=== PATIENT | female | born 1960 | race Caucasian/White ===

== ENCOUNTER 2018-07-05 17:58 | Emergency (ER) | payer OTHER ==
[2018-07-05 18:03] VITALS: BP 121/72; PULSE 64; TEMP 97.6; BMI 36.0
--- NOTE | 2018-07-05 19:12 | PDOC ---
History of Present Illness - General Chief Complaint: Pain, Acute Stated Complaint: ABD PAIN/BODYACHES Time Seen by Provider: 07/05/18 19:12 - History of Present Illness Initial Comments: 07/05/18 19:36 Ms. Moreland is a 58 yo female w/ no pmh who presents for evaluation of 2 day history of multiple episodes of diarrhea w/ 2 episodes of vomiting. Both were non bloody, vomitus was also no bilius. Patient also reports she has felt slightly weak today and has had intermittent subjective fever. Has not been eating much over this time period. Of note, patient reports she got the flu shot on Sunday and attributes her symptoms to this. Has no other complaints at this time. The patient denies chest pain, shortness of breath, headache and dizziness. Denies dysuria, frequency, urgency and hematuria. Past History - Past Medical History Allergies/Adverse Reactions: Allergies Allergy/AdvReac Type Severity Reaction Status Date / Time Penicillins Allergy Verified 07/05/18 18:03 COPD: No - Suicide/Smoking/Psychosocial Hx Smoking History: Never smoked Hx Alcohol Use: No Drug/Substance Use Hx: No Review of Systems - Review of Systems Comments:: 07/05/18 19:37 GENERAL/CONSTITUTIONAL: +Subjective fevers with some minimal weakness as described. HEAD, EYES, EARS, NOSE AND THROAT: No change in vision. No ear pain or discharge. No sore throat. CARDIOVASCULAR: No chest pain or shortness of breath RESPIRATORY: No cough, wheezing, or hemoptysis. GASTROINTESTINAL: +N/V/D as described. GENITOURINARY: No dysuria, frequency, or change in urination. MUSCULOSKELETAL: No joint or muscle swelling or pain. No neck or back pain. SKIN: No rash NEUROLOGIC: No headache, vertigo, loss of consciousness, or change in strength/ sensation. ENDOCRINE: No increased thirst. No abnormal weight change HEMATOLOGIC/LYMPHATIC: No anemia, easy bleeding, or history of blood clots. ALLERGIC/IMMUNOLOGIC: No hives or skin allergy. *Physical Exam - Vital Signs Last Vital Signs Temp Pulse Resp BP Pulse Ox 97.6 F 64 16 121/72 99 07/05/18 18:00 07/05/18 18:00 07/05/18 18:00 07/05/18 18:00 07/05/18 18:00 - Physical Exam Comments: 07/05/18 19:37 GENERAL: Awake, alert, and fully oriented, in no acute distress HEAD: No signs of trauma, normocephalic, atraumatic EYES: PERRLA, EOMI, sclera anicteric, conjunctiva clear ENT: Auricles normal inspection, hearing grossly normal, nares patent, oropharynx clear without exudates. Moist mucosa NECK: Normal ROM, supple, no lymphadenopathy, JVD, or masses LUNGS: No distress, speaks full sentences, clear to auscultation bilaterally HEART: Regular rate and rhythm, normal S1 and S2, no murmurs, rubs or gallops, peripheral pulses normal and equal bilaterally. ABDOMEN: +LUQ TTP. Soft, normoactive bowel sounds. No guarding, no rebound. No masses EXTREMITIES: Normal inspection, Normal range of motion, no edema. No clubbing or cyanosis. NEUROLOGICAL: Cranial nerves II through XII grossly intact. Normal speech, normal gait, no focal sensorimotor deficits SKIN: Warm, Dry, normal turgor, no rashes or lesions noted. ED Treatment Course - LABORATORY CBC & Chemistry Diagram: 07/05/18 19:40 07/05/18 19:40 Medical Decision Making - Medical Decision Making 07/05/18 22:00 Ms. Moreland is a 58 yo female w/ pmh as described who presents for evaluation of symptoms concerning for gastritis vs. viral illness vs. UTI. Patient evaluated with labs as below w/ no concerning findings. Believe patient symptoms 2/2 viral illness. Patient reports improvement of symptoms following zofran and fluids. Patient tolerated PO w/out difficulty. No concern for acute process at this time. Discharging to home. Laboratory Results - last 24 hr 07/05/18 07/05/18 07/05/18 19:40 19:40 21:40 WBC 4.5 RBC 4.67 Hgb 14.5 Hct 43.1 MCV 92.2 MCH 30.9 MCHC 33.6 RDW 13.6 Plt Count 236 MPV 8.1 Absolute Neuts (auto) 2.2 Neutrophils % 49.3 Lymphocytes % 32.8 Monocytes % 12.6 H Eosinophils % 4.9 H Basophils % 0.4 Nucleated RBC % 0 Sodium 141 Potassium 3.5 Chloride 109 H Carbon Dioxide 24 Anion Gap 8 BUN 11 Creatinine 0.6 Creat Clearance w eGFR 101.97 Random Glucose 89 Calcium 8.3 L Total Bilirubin 0.3 AST 58 H ALT 58 Alkaline Phosphatase 129 H Total Protein 7.2 Albumin 3.7 Urine Color Yellow Urine Appearance Clear Urine pH 5.5 Ur Specific [place] 1.020 Urine Protein Negative Urine Glucose (UA) Negative Urine Ketones Negative Urine Blood Negative Urine Nitrite Negative Urine Bilirubin Negative Urine Urobilinogen 1.0 Ur Leukocyte Esterase Negative *DC/Admit/Observation/Transfer Diagnosis at time of Disposition: Vomiting and diarrhea - Discharge Dispostion Disposition: HOME - Referrals Referrals: Angelina Pagan MD [Primary Care Provider] - - Patient Instructions Printed Discharge Instructions: DI for Diarrhea and Traveler's Diarrhea -- Adult, DI for Vomiting -- Adult Additional Instructions: You were evaluated today in the ER for your symptoms. We performed labs with no concerning findings. Your symptoms improved after hydration. Please follow-up with primary care provider early next week for further evaluation. Return to ER if any difficulty tolerating food, pain, or other concerning symptoms. Print Language: THAI - Post Discharge Activity
[2018-07-05] MEDS ORDERED: ONDANSETRON 4 MG/2 ML VIAL IVPUSH ONE (19:22)
[2018-07-05] MEDS ORDERED: SODIUM CHLORIDE 1,000 ML IV STA (19:22)
--- NOTE | 2018-07-05 19:38 | PDOC ---
Attending Attestation - HPI HPI: 07/05/18 19:47 The patient is a 58 year old female with no past medical history presents to the emergency department with vomiting, diarrhea and weakness. The patient reports she got the flu shot earlier this week and since then shes been having symptoms of nausea, 2 episodes of NBNB vomiting, diarrhea and mild weakness. The patient reports she has episodes of room spinning dizziness. Denies chest pain, shortness of breath, palpitations. Denies fever, chills, cough, headache, abdominal pain, or urinary symptoms. Allergies: PEnicillins PCP: Angelina Pagan MD - Physicial Exam PE: 07/05/18 21:50 GENERAL: The patient is in no acute distress. ENT: Ears normal, nares patent, oropharynx clear without exudates. Moist mucous membranes. NECK: Normal range of motion, supple, no nuchal rigidity LUNGS: Breath sounds equal, clear to auscultation bilaterally. No wheezes, and no crackles. HEART: Regular rate and rhythm, normal S1 and S2 without murmur, rub or gallop. ABDOMEN: Soft, nontender, normoactive bowel sounds. No guarding, no rebound. No masses palpable. EXTREMITIES: chronic midline back pain. Normal range of motion, no edema. NEUROLOGICAL: Cranial nerves II through XII grossly intact. Normal speech. No focal neurological deficits. SKIN: Warm, Dry, normal turgor, no rashes or lesions noted. 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 She feels vastly improved with hydration in the ER and her labs are normal. UA normal too. <Fatemeh Garrido - Last Filed: 07/06/18 05:22>
[2018-07-05 19:49] LABS: BASO % 0.4 % (0-2.0); EOS % 4.9 % (0-4.5); HEMATOCRIT 43.1 % (32.4-45.2); HEMOGLOBIN 14.5 GM/dL (10.7-15.3); LYMPH % 32.8 % (8-40); MCH 30.9 pg (25.7-33.7); MCHC 33.6 g/dl (32.0-36.0); MEAN CELL VOLUME 92.2 fl (80-96); MEAN PLT VOLUME 8.1 fl (7.5-11.1); MONO % 12.6 % (3.8-10.2); NEUT % 49.3 % (42.8-82.8); PLATELET COUNT 236 K/MM3 (134-434); RBC 4.67 M/mm3 (3.60-5.2); RDW 13.6 % (11.6-15.6); WHITE BLOOD COUNT 4.5 K/mm3 (4.0-10.0)
[2018-07-05 20:19] LABS: ALBUMIN 3.7 g/dl (3.4-5.0); ALK PHOS 129 U/L (45-117); ANION GAP 8 MMOL/L (8-16); BILIRUBIN,TOTAL 0.3 mg/dL (0.2-1); BLOOD UREA NITROGEN 11 mg/dL (7-18); CALCIUM 8.3 mg/dL (8.5-10.1); CHLORIDE 109 mmol/L (98-107); CO2 24 mmol/L (21-32); CREATININE 0.6 mg/dL (0.55-1.3); GLUCOSE,RANDOM 89 mg/dL (74-106); POTASSIUM 3.5 mmol/L (3.5-5.1); SGOT/AST 58 U/L (15-37); SGPT/ALT 58 U/L (13-61); SODIUM 141 mmol/L (136-145); TOT PROT 7.2 g/dl (6.4-8.2)
[2018-07-05] MEDS ORDERED: ONDANSETRON 4 MG/2 ML VIAL ONE (20:21)
[2018-07-05 21:56] LABS: PH,URINE 5.5 (5.0-8.0); URINE APPEARANCE CLEAR; URINE BILIRUBIN NEGATIVE (NEGATIVE); URINE COLOR YELLOW; URINE GLUCOSE (UA) NEGATIVE (NEGATIVE); URINE KETONE NEGATIVE (NEGATIVE); URINE LEUK ESTERASE NEGATIVE (NEGATIVE); URINE NITRITE NEGATIVE (NEGATIVE); URINE PROTEIN NEGATIVE (NEGATIVE)
== END 2018-07-05 22:22 | disposition home or self-care (01) ==
LOC: JER 17:58
PROC: 3E033GC Introduction of Other Therapeutic Substance into Peripheral Vein, Percutaneous Approach (ICD-10-PCS; principal; 2018-07-05)
DX: R11.2 Nausea with vomiting, unspecified (principal); R19.7 Diarrhea, unspecified
CPT/HCPCS: 36415; 80053; 81003; 85025; 87086; 87186; 96374; 99282-25; J7030

== ENCOUNTER 2019-02-25 18:26 | Emergency (ER) | payer OTHER ==
[2019-02-25 18:34] VITALS: BP 146/86; PULSE 74; TEMP 98; BMI 32.7
--- NOTE | 2019-02-25 18:35 | PDOC ---
Rapid Medical Evaluation Time Seen by Provider: 02/25/19 18:32 Medical Evaluation: Allergies Allergy/AdvReac Type Severity Reaction Status Date / Time Penicillins Allergy Verified 07/05/18 18:03 02/25/19 18:32 I have performed a brief in-person evaluation of this patient. The patient presents with a chief complaint of: hand pain, burning Pertinent physical exam findings:stable and in NAD, non-focal I have ordered the following: hand xray The patient will proceed to the ED for further evaluation.
--- NOTE | 2019-02-25 19:23 | PDOC ---
History of Present Illness - General Chief Complaint: Pain Stated Complaint: HAND PAIN Time Seen by Provider: 02/25/19 18:32 - History of Present Illness Initial Comments: 02/25/19 19:22 4-year-old female without comorbidities presents for evaluation of sensation changes in bilateral fingertips x1 week without systemic symptoms Past History - Past Medical History Allergies/Adverse Reactions: Allergies Allergy/AdvReac Type Severity Reaction Status Date / Time Penicillins Allergy Verified 02/25/19 18:35 Home Medications: Ambulatory Orders NK [No Known Home Medication] 02/25/19 COPD: No - Psycho Social/Smoking Cessation Hx Smoking History: Never smoked Hx Alcohol Use: No Drug/Substance Use Hx: No Review of Systems - Review of Systems Neurological: Yes: See HPI *Physical Exam - Vital Signs Last Vital Signs Temp Pulse Resp BP Pulse Ox 98 F 74 18 146/86 99 02/25/19 18:30 02/25/19 18:30 02/25/19 18:30 02/25/19 18:30 02/25/19 18:30 - Physical Exam Comments: 02/25/19 19:22 Bilateral hand skin color and temperature normal there is no tenderness or gross sensorimotor deficits. There is decreased sensation at the tips of the fingers. She complains of a warm feeling at times. Medical Decision Making - Medical Decision Making 02/25/19 19:22 X-rays are normal with mild arthritic changes in the hand. 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 - Post Discharge Activity
== END 2019-02-25 19:34 | disposition home or self-care (01) ==
LOC: JERFT 18:26
DX: M79.2 Neuralgia and neuritis, unspecified (principal); Z88.0 Allergy status to penicillin
CPT/HCPCS: 73130-TC-RT-FY; 99282-25

== ENCOUNTER 2019-05-17 09:22 | Emergency (ER) | payer OTHER ==
[2019-05-17 09:33] VITALS: BP 119/68; PULSE 72; TEMP 98.8; BMI 27.4
[2019-05-17] MEDS ORDERED: IBUPROFEN 600 MG TABLET (FP) PO ONE ×2 (09:49→09:51)
[2019-05-17] MEDS ORDERED: CLINDAMYCIN HCL 150 MG CAPSULE (FP) PO ONE (09:49)
[2019-05-17] MEDS ORDERED: CLINDAMYCIN HCL 150 MG CAPSULE (FP) ONE (09:51)
--- NOTE | 2019-05-17 09:56 | PDOC ---
History of Present Illness - General Chief Complaint: Wound Stated Complaint: MOUTH PAIN Time Seen by Provider: 05/17/19 09:32 History Source: Patient Exam Limitations: No Limitations - History of Present Illness Initial Comments: 05/17/19 09:50 Patient is a 59-year-old female with no past medical history who presents to the ED with complaint of gingival swelling and pain to the upper left quadrant since yesterday. As per her family member, the patient ate a crunchy piece of toast and began to have pain. She noticed swelling yesterday which worsened today. Of note: 1 year ago the patient's crown fell off and she never went to see the dentist after that. She has not had any issues up until yesterday. She denies any fevers or chills. She has not taken anything for her pain. Past History - Past Medical History Allergies/Adverse Reactions: Allergies Allergy/AdvReac Type Severity Reaction Status Date / Time Penicillins Allergy Verified 05/17/19 09:27 Home Medications: Ambulatory Orders Clindamycin [Cleocin -] 300 mg PO Q6HPO #28 capsule 05/17/19 COPD: No - Psycho Social/Smoking Cessation Hx Smoking History: Never smoked Hx Alcohol Use: No Drug/Substance Use Hx: No Review of Systems - Review of Systems Comments:: 05/17/19 09:52 - Review of Systems Able to Perform ROS?: Yes Constitutional: No: Fever, Chills, Loss of Appetite, Night Sweats, Weakness HEENTM: No: Eye Pain, Vision changes, Ear Pain, Throat Pain, Throat Swelling, Mouth Pain, Difficulty Swallowing; + left upper gingival swelling Respiratory: No: Cough, Shortness of Breath, Wheezing, Sputum Production Cardiac (ROS): No: Chest Pain, Chest Tightness, Palpitations, Irregular Heart Beat, Edema ABD/GI: No: Nausea, Vomiting, Abdominal Pain, Diarrhea Musculoskeletal: No: Muscle Pain, Back Pain, Joint Pain, Muscle Weakness, Neck Pain Integumentary: No: Lesions, Rash Neurological: No: Headache, Numbness, Tingling, Weakness, Speech Difficulties *Physical Exam - Vital Signs Last Vital Signs Temp Pulse Resp BP Pulse Ox 98.8 F 72 18 119/68 99 05/17/19 09:28 05/17/19 09:28 05/17/19 09:28 05/17/19 09:28 05/17/19 09:28 - Physical Exam 05/17/19 09:53 - Physical Exam General Appearance: Nourished, Appropriately Dressed, No Distress HEENT: EOMI, Normal Voice, No Muffled/Hoarse voice, No Tonsillar Exudate, No Tonsillar Erythema, No Nasal Congestion, No Rhinorrhea, Hearing Grossly Normal, Upper left quadrant gingiva with swelling appreciated. There appears to be diffuse gingivitis. After lightly touching the buccal gingiva around tooth numbers 9, 10 and 11, the gingiva began to bleed immediately. There is no obvious abscess. There is an aphthous ulcer on the gingival surface of tooth # 10 gingiva. There is significant tenderness to palpation. Neck: Supple, No Lymphadenopathy (R), No Lymphadenopathy (L), No Rigidity, No Decreased range of motion Respiratory/Chest: Lungs Clear, Normal Breath Sounds. No Respiratory Distress, No Accessory Muscle Use Cardiovascular: Regular Rhythm, Regular Rate, S1, S2 Musculoskeletal: Normal Inspection. No Decreased Range of Motion Extremity: Normal Capillary Refill, Normal Inspection Integumentary: Normal Color, Dry. 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 Plan: -We will treat the patient for gingivitis and possible underlying abscess with clindamycin since she is allergic to penicillin -300 mg of clindamycin given in the ED, first dose -600 mg of Motrin given in the ED for pain control -Patient has been made aware that she must follow-up with a dentist within the next few days for definitive treatment -She can rinse with salt water to help with infection and pain. -She understands and agrees with this treatment and plan and the patient stable for discharge. Discharge - Discharge Information Problems reviewed: Yes Clinical Impression/Diagnosis: Gingivitis, Gingival abscess Condition: Stable Disposition: HOME - Additional Discharge Information Prescriptions: Clindamycin [Cleocin -] 300 mg PO Q6HPO #28 capsule - Follow up/Referral Referrals: Ekta Stallworth MD [Primary Care Provider] - - Patient Discharge Instructions Patient Printed Discharge Instructions: Tooth Abscess, DI for Gingivitis Additional Instructions: Eat soft foods for the next few days. Take the antibiotics as prescribed and complete the entire course. Take Tylenol or ibuprofen for pain. Gargle with salt water 3 times daily to help with infection and pain. You must see a dentist within the next 2 days for definitive treatment. Print Language: ARABIC - Post Discharge Activity
== END 2019-05-17 10:08 | disposition home or self-care (01) ==
LOC: JER 09:22 → JERFT 09:22
DX: K05.10 Chronic gingivitis, plaque induced (principal); K05.219 Aggressive periodontitis, localized, unspecified severity
CPT/HCPCS: 99281-25

== ENCOUNTER 2019-10-17 09:57 | Inpatient (IN) | payer OTHER ==
--- NOTE | 2019-10-17 10:03 | PDOC ---
Rapid Medical Evaluation Chief Complaint: Lightheaded Time Seen by Provider: 10/17/19 09:59 Medical Evaluation: Allergies Allergy/AdvReac Type Severity Reaction Status Date / Time Penicillins Allergy Verified 10/17/19 09:59 10/17/19 10:00 CC: sudden dizziness this am when attempted to use the bathroom, felt as if the room was spinning and then laid down, tried again later but s/s returned, No visual changes, marble coper, sob, headache, or fever. Denies recent injury, sx, travel, or ear pain Exam: vss, eomi, in wheelchair b/c dizziness worse with standing/movement Plan: ekg, labs, head ct, meclizine Discharge Disposition - Diagnosis Dizziness - Referrals - Patient Instructions - Post Discharge Activity
[2019-10-17] MEDS ORDERED: MECLIZINE HCL 25 MG TABLET (FP) PO ONE ×2 (10:04→13:10)
--- NOTE | 2019-10-17 10:16 | TELE ---
HPI - General Reason For Visit: DIZZINESS Time Seen by Provider: 10/17/19 09:59 Past History - Medical History Allergies/Adverse Reactions: Allergies Allergy/AdvReac Type Severity Reaction Status Date / Time Penicillins Allergy Verified 10/17/19 09:59 Home Medications: Ambulatory Orders Sertraline HCl [Zoloft] 25 mg PO DAILY 10/17/19 COPD: No - Immunization History Immunization Up to Date: No - Psycho-Social/Smoking History Smoking History: Never smoked Have you smoked in the past 12 months: No - Substance Abuse Hx (Audit-C & DAST Scrn) How often the patient has a drink containing alcohol: Never Score: In Men: 4 or > Positive; In Women: 3 or > Positive: 0 Screen Result (Pos requires Nsg. Audit-10AR): Negative In the last yr the pt used illegal drug/Rx for NonMed reason: No Score: Yes response is considered Positive: 0 Screen Result (Positive result requires Nsg. DAST-10): Negative *Physical Exam - Vital Signs Last Vital Signs Temp Pulse Resp BP Pulse Ox 97.7 F 74 18 130/91 99 10/17/19 09:59 10/17/19 09:59 10/17/19 09:59 10/17/19 09:59 10/17/19 09:59 Discharge Diagnosis at time of Disposition: Dizziness - Referrals - Patient Instructions
--- NOTE | 2019-10-17 10:19 | PDOC ---
History of Present Illness - General Chief Complaint: Lightheaded Stated Complaint: DIZZINESS Time Seen by Provider: 10/17/19 09:59 History Source: Patient Exam Limitations: No Limitations - History of Present Illness Initial Comments: 10/17/19 10:18 59yF w PMHx vertigo presenting w 1d dizziness. [place] room spinning when turning to side in bed at 2am this morning and persistent since 9am when she was getting ready for the day. Denies headache, visual changes, CP, SOB, n/v, cough, diarrhea. Had previous vertigo episode in 2001 after eating too much chocolate, doesn't remember how she was treated other than being seen in the hospital. Past History - Medical History Allergies/Adverse Reactions: Allergies Allergy/AdvReac Type Severity Reaction Status Date / Time Penicillins Allergy Verified 10/17/19 09:59 Home Medications: Ambulatory Orders Sertraline HCl [Zoloft] 25 mg PO DAILY 10/17/19 COPD: No - Immunization History Immunization Up to Date: No - Psycho-Social/Smoking History Smoking History: Never smoked Have you smoked in the past 12 months: No - Substance Abuse Hx (Audit-C & DAST Scrn) How often the patient has a drink containing alcohol: Never Score: In Men: 4 or > Positive; In Women: 3 or > Positive: 0 Screen Result (Pos requires Nsg. Audit-10AR): Negative In the last yr the pt used illegal drug/Rx for NonMed reason: No Score: Yes response is considered Positive: 0 Screen Result (Positive result requires Nsg. DAST-10): Negative Review of Systems - Review of Systems Constitutional: No: Chills, Fever HEENTM: No: Eye Pain, Nose Congestion Respiratory: No: Cough, Shortness of Breath Cardiac (ROS): No: Chest Pain, Palpitations, Syncope ABD/GI: No: Abdominal Distended, Constipated, Diarrhea, Nausea, Vomiting : No: Burning, Flank Pain Musculoskeletal: No: Back Pain, Joint Pain Integumentary: No: Bruising, Flushing Neurological: Yes: Dizziness. No: Headache, Seizure Psychiatric: No: Anxiety, Depression Endocrine: No: Intolerance to Cold, Intolerance to Heat Hematologic/Lymphatic: No: Anemia, Blood Clots *Physical Exam - Vital Signs Last Vital Signs Temp Pulse Resp BP Pulse Ox 97.7 F 74 18 130/91 99 10/17/19 09:59 10/17/19 09:59 10/17/19 09:59 10/17/19 09:59 10/17/19 09:59 - Physical Exam General Appearance: Yes: Nourished, Appropriately Dressed, Mild Distress HEENT: positive: EOMI (horizontal nystagmus), JIMMY, Normal Voice, Hearing Grossly Normal. negative: Scleral Icterus (R), Scleral Icterus (L), Nasal Congestion Respiratory/Chest: positive: Lungs Clear, Normal Breath Sounds. negative: Chest Tender, Respiratory Distress, Crackles, Rales, Rhonchi, Stridor, Wheezing Cardiovascular: positive: Regular Rhythm, Regular Rate, S1, S2. negative: Edema, Murmur Gastrointestinal/Abdominal: positive: Normal Bowel Sounds, Flat, Soft. negative: Tender, Organomegaly Integumentary: positive: Normal Color, Warm Neurologic: positive: heel cover splitter II-XII NML intact, Fully Oriented, Alert, Normal Response, Motor Strength 5/5, Responsive, Finger to Nose (normal finger-nose, alternating hands), Other (horizontal nystagmus w alison hallpike). negative: Facial Droop, Numbness, Sensory Deficit, Confused, Disoriented ED Treatment Course - LABORATORY CBC & Chemistry Diagram: 10/17/19 10:31 10/17/19 10:31 Medical Decision Making - Medical Decision Making 10/17/19 11:01 EKG - sinus edilberto, HR 59, QTc 419, no ST changes CXR - clear lung gonzalez head CT - no acute pathology --- 59yF w PMHx vertigo presenting w 1d dizziness (room spinning) Likely peripheral vertigo (positional) Low concern for central vertigo (normal cerebellar neuro testing) vs CVA (no focal neuro deficits, neg CT). Negative HINTS exam Given 75 meclizine, 1 ativan, 1L NS, still unstable when standing up Admit m/s for vertigo Discharge - Discharge Information Problems reviewed: Yes Clinical Impression/Diagnosis: Vertigo Condition: Stable - Follow up/Referral Referrals: Ekta Stallworth MD [Primary Care Provider] - - Patient Discharge Instructions - Post Discharge Activity
[2019-10-17] MEDS ORDERED: MECLIZINE HCL 25 MG TABLET (FP) ONE ×3 (10:31→13:18)
[2019-10-17] MEDS ORDERED: SODIUM CHLORIDE 0.9% 500 ML INFUS.BAG IV ONE (10:44)
[2019-10-17 10:49] LABS: BASO % 0.5 % (0-2.0); EOS % 2.4 % (0-4.5); HEMATOCRIT 40.4 % (32.4-45.2); HEMOGLOBIN 13.5 GM/dL (10.7-15.3); LYMPH % 41.9 % (8-40); MCH 30.9 pg (25.7-33.7); MCHC 33.3 g/dl (32.0-36.0); MEAN CELL VOLUME 92.7 fl (80-96); MEAN PLT VOLUME 7.9 fl (7.5-11.1); NEUT % 49.2 % (42.8-82.8); PLATELET COUNT 299 K/MM3 (134-434); RBC 4.36 M/mm3 (3.60-5.2); RDW 13.4 % (11.6-15.6); WHITE BLOOD COUNT 5.6 K/mm3 (4.0-10.0)
[2019-10-17 11:28] LABS: ALBUMIN 3.9 g/dl (3.4-5.0); ALK PHOS 112 U/L (45-117); ANION GAP 6 MMOL/L (8-16); BILIRUBIN,TOTAL 0.7 mg/dL (0.2-1); CHLORIDE 107 mmol/L (98-107); CO2 28 mmol/L (21-32); CREATININE 0.6 mg/dL (0.55-1.3); GLUCOSE,RANDOM 113 mg/dL (74-106); POTASSIUM 4.5 mmol/L (3.5-5.1); SGOT/AST 21 U/L (15-37); SGPT/ALT 26 U/L (13-61); SODIUM 141 mmol/L (136-145); TOT PROT 7.2 g/dl (6.4-8.2)
--- NOTE | 2019-10-17 11:56 | PDOC ---
Documentation entered by Ele Mayfield SCRIBE, acting as scribe for Brennon Jung MD. Brennon Jung MD: This documentation has been prepared by the Tran lu Brenda, SCRIBE, under my direction and personally reviewed by me in its entirety. I confirm that the documentation accurately reflects all work, treatment, procedures, and medical decision making performed by me. Attending Attestation - Resident Resident Name: Irvin Yo - ED Attending Attestation I have performed the following: I have examined & evaluated the patient, The case was reviewed & discussed with the resident, I agree w/resident's findings & plan, Exceptions are as noted - HPI HPI: 10/17/19 11:50 59-year-old female presenting with vertigo. Patient had an episode of vertigo approximately 2 AM, 1 back to sleep and again at 9 AM when she tried to get up. Patient denies any associated headache, neck pain, nausea, vomiting, diplopia, dysarthria, focal numbness, tingling, weakness. She denies any recent trauma or injuries. She denies any chest pain, shortness of breath, palpitations, diarrhea, melena, blood per rectum. Patient states that she feels room spinning dizziness that is worse when she is laying down or moving her head very quickly. She has had this in the remote past. - Physicial Exam PE: 10/17/19 11:53 GENERAL: The patient is awake, alert, and fully oriented, Nontoxic - in no acute distress. HEAD: Normocephalic, atraumatic. EYES: extraocular movements intact, sclera anicteric, conjunctiva clear. Extinguishing horizontal nystagmus ENT: Normal voice, Moist mucous membranes. NECK: Normal range of motion, supple LUNGS: Breath sounds equal, clear to auscultation bilaterally. No wheezes, no rhonchi, no rales. HEART: Regular rate and rhythm, normal S1 and S2 without murmur, rub or gallop. ABDOMEN: Soft, nontender, No guarding, no rebound. No CVA tenderness EXTREMITIES: Normal range of motion, no edema. PSYCH: Normal mood, normal affect. SKIN: Warm, Dry, normal turgor, NEURO: Mental status: The patient is oriented x3. Cranial nerves: Cranial nerves II through XII are intact Motor: The upper extremities are 5 over 5 in all muscle groups. The lower extrem ities are 5 over 5 in all muscle groups. Negative pronator drift Sensation: Sensation is intact to light touch throughout. romberg negative Cerebellar: Llzbju-fcrhpq-odin is normal in both upper extremities. Jxrq-lwmc-kric is normal in both lower extremities. rapid alternating movements are normal. - Medical Decision Making 10/17/19 10:50 59y F hx of vertigo presens with complaint of feeling room spinning dizziness since this morning after waking up around 2am, went bcak to bed and again at 9am. No associated headache, vision changes, dysarthria. 10/17/19 11:53 Likely peripheral vertigo, normal neuro and cerebellar exam findings. Will obtain CT of the head due to her age Will give meclizine, fluids Screening blood work to evaluate for anemia, metabolic derangements 10/17/19 15:[address] neg for acut epathology pt still feeling very vertiginous, unable to ambulate will admit for further mangement of vertigo Heart Score/ECG Review - ECG Impressions Comment:: 10/17/19 11:54 Twelve-lead EKG was performed and reviewed by me. There is normal sinus rhythm with a normal rate. Rate of 59 The axis is normal. The intervals are normal. There is normal R wave progression There are no ST or T wave abnormalities. Impression: Sinus bradycardia Discharge - Discharge Information Problems reviewed: Yes Clinical Impression/Diagnosis: Vertigo Condition: Improved Disposition: HOME - Follow up/Referral - Patient Discharge Instructions - Post Discharge Activity
--- NOTE | 2019-10-17 13:25 | EKG ---
Test Reason : Blood Pressure : / mmHG Vent. Rate : 059 BPM Atrial Rate : 059 BPM P-R Int : 150 ms QRS Dur : 086 ms QT Int : 424 ms P-R-T Axes : 053 008 026 degrees QTc Int : 419 ms POOR DATA QUALITY, INTERPRETATION MAY BE ADVERSELY AFFECTED SINUS BRADYCARDIA OTHERWISE NORMAL ECG NO PREVIOUS ECGS AVAILABLE Confirmed by LAKEISHA WANG MD ([id number]) on 10/17/2019 1:25:47 PM Referred By: Confirmed By:LAKEISHA WANG MD
[2019-10-17] MEDS ORDERED: LORazepam 2 MG/ML SDV VIAL ONE (14:17)
[2019-10-17] MEDS ORDERED: MECLIZINE HCL 25 MG TABLET (FP) PO PRN (16:22)
--- NOTE | 2019-10-17 16:34 | PN ---
Teaching Attending Note Name of Resident: Rain Cardoso ATTENDING PHYSICIAN STATEMENT I saw and evaluated the patient. I reviewed the resident's note and discussed the case with the resident. I agree with the resident's findings and plan as documented. SUBJECTIVE: 59 year old female with known history of vertigo, who presents to ED complaining of dizziness. Apparently she woke up about 2 am, felt dizzy but slept it off. Woke up again feeling dizzy. She denied headaches, neck aches, nausea, vomiting. She is able to ambulate however felt unsteady on her feet. orse when she is laying down or moving her head very quickly. She has had this in the remote past. 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 No nystagmus. Ambulation is steady. ASSESSMENT AND PLAN: #1 Sudden dizziness - her neurologic exam is essentially normal - ddx; TIA, peripheral vertigo (BPPV) - cont close neurologic monitoring - she responded to meclizine - cardiac monitroing - monitor blood pressure - check orthostatics #2 DVT prophylaxis - Lovenox DW Dr Bryan and
--- NOTE | 2019-10-17 16:58 | HP ---
CHIEF COMPLAINT: dizziness PCP: Angelina Lion HISTORY OF PRESENT ILLNESS: Patient is a 59 year old female with past medical history of anxiety, presented to the ED due to persistent dizziness since this morning. Patient reported she woke up around 2am this morning to go to the bathroom, then suddenly experienced dizziness, described as room spinning around her, worse with sudden head position stages. The symptom persisted that patient became unsteady to walk, and crawled back to bed instead. She reported previous vertigo episode in 2001 after eating too much chocolate, doesn't remember how she was treated other than being seen in the hospital. Patient denies any fevers, chills, headache, nausea, vomiting, chest pain, shortness of breath, abdominal pain, diarrhea, urinary symptoms. No hearing loss, tinnitus or discharge. Denies any recent illness or sick contacts. ER course was notable for: (1)Head CT - no acute pathology (2) (3) Recent Travel: denies PAST MEDICAL HISTORY: PAST SURGICAL HISTORY: x2 cholecystectomy Social History: Smoking:denies Alcohol:denies Drugs: denies Allergies Penicillins Allergy (Verified 10/17/19 09:59) HOME MEDICATIONS: Home Medications Medication Instructions Recorded Sertraline HCl [Zoloft] 25 mg PO DAILY 10/17/19 REVIEW OF SYSTEMS CONSTITUTIONAL: Absent: fever, chills, diaphoresis, generalized weakness, malaise, loss of appetite, weight change HEENT: Absent: rhinorrhea, nasal congestion, throat pain, throat swelling, difficulty swallowing, mouth swelling, ear pain, eye pain, visual changes CARDIOVASCULAR: Absent: chest pain, syncope, palpitations, irregular heart rate, lightheadedness, peripheral edema RESPIRATORY: Absent: cough, shortness of breath, dyspnea with exertion, orthopnea, wheezing, stridor, hemoptysis GASTROINTESTINAL: Absent: abdominal pain, abdominal distension, nausea, vomiting, diarrhea, constipation, melena, hematochezia GENITOURINARY: Absent: dysuria, frequency, urgency, hesitancy, hematuria, flank pain, genital pain MUSCULOSKELETAL: Absent: myalgia, arthralgia, joint swelling, back pain, neck pain SKIN: Absent: rash, itching, pallor HEMATOLOGIC/IMMUNOLOGIC: Absent: easy bleeding, easy bruising, lymphadenopathy, frequent infections ENDOCRINE: Absent: unexplained weight gain, unexplained weight loss, heat intolerance, cold intolerance NEUROLOGIC: dizziness Absent: headache, focal weakness or paresthesias, unsteady gait, seizure, mental status changes, bladder or bowel incontinence PSYCHIATRIC: Absent: anxiety, depression, suicidal or homicidal ideation, hallucinations. PHYSICAL EXAMINATION Vital Signs - 24 hr 10/17/19 10/17/19 10/17/19 09:59 13:00 16:09 Temperature 97.7 F Pulse Rate 74 Respiratory 18 12 Rate Blood Pressure 130/91 Blood Pressure 147/77 [Left Arm] O2 Sat by Pulse 99 98 Oximetry (%) GENERAL: Awake, alert, and fully oriented, in no acute distress. HEAD: Normal with no signs of trauma. EYES:PERRLA, EOMI, sclera anicteric, conjunctiva clear. EARS, NOSE, THROAT: Moist mucous membranes. NECK: Normal range of motion, supple . LUNGS: Breath sounds equal, clear to auscultation bilaterally. HEART: Regular rate and rhythm, normal S1 and S2 ABDOMEN: Soft, nontender, not distended, normoactive bowel sounds MUSCULOSKELETAL: Normal range of motion at all joints. LOWER EXTREMITIES: 2+ pulses, warm, well-perfused. No peripheral edema. NEUROLOGICAL: Cranial nerves II-XII intact. Normal speech. motor 5/5, sensation intact. No dysmetria, no dysdiadochokinesia. +Romberg's PSYCHIATRIC: Cooperative. Good eye contact. Appropriate mood and affect. SKIN: Warm, dry, normal turgor Laboratory Results - last 24 hr 10/17/19 10/17/19 10:31 10:31 WBC 5.6 RBC 4.36 Hgb 13.5 Hct 40.4 MCV 92.7 MCH 30.9 MCHC 33.3 RDW 13.4 Plt Count 299 MPV 7.9 Absolute Neuts (auto) 2.8 Neutrophils % 49.2 D Lymphocytes % 41.9 H D Monocytes % 6.0 Eosinophils % 2.4 D Basophils % 0.5 Nucleated RBC % 0 Sodium 141 Potassium 4.5 Chloride 107 Carbon Dioxide 28 Anion Gap 6 L BUN 11.0 Creatinine 0.6 Est GFR (CKD-EPI)AfAm 114.02 Est GFR (CKD-EPI)NonAf 98.38 Random Glucose 113 H Calcium 9.0 Total Bilirubin 0.7 AST 21 ALT 26 Alkaline Phosphatase 112 Creatine Kinase 60 Troponin I < 0.02 Total Protein 7.2 Albumin 3.9 ASSESSMENT/PLAN: Patient is a 59 year old female with past medical history of anxiety, presented to the ED due to persistent dizziness since this morning. #Dizziness, likely BPPV -Head CT no acute pathology -EKG sinus edilberto, HR 59, QTc 419, no ST changes -orthostatics -tele monitoring -will continue meclizine prn for dizziness -physical therapy -fall risk precaution #FEN -Not on any standing fluids -Electrolytes wnl, routine bmp monitoring -Sodium restricted diet #Prophylaxis -Lovenox 40mg sq daily #Disposition -tele obs -likely for discharge tomorrow if dizziness improves Visit type - Emergency Visit Emergency Visit: Yes ED Registration Date: 10/17/19 Care time: The patient presented to the Emergency Department on the above date and was hospitalized for further evaluation of their emergent condition. - New Patient This patient is new to me today: Yes Date on this admission: 10/17/19 - Critical Care Critical Care patient: No ATTENDING PHYSICIAN STATEMENT I saw and evaluated the patient. I reviewed the resident's note and discussed the case with the resident. I agree with the resident's findings and plan as documented. SUBJECTIVE: OBJECTIVE: ASSESSMENT AND PLAN:
[2019-10-17 18:00] VITALS: BMI 29.9
[2019-10-18 06:57] LABS: BASO % 0.7 % (0-2.0); HEMATOCRIT 40.2 % (32.4-45.2); HEMOGLOBIN 13.5 GM/dL (10.7-15.3); MCH 31.4 pg (25.7-33.7); MCHC 33.5 g/dl (32.0-36.0); MEAN CELL VOLUME 93.5 fl (80-96); MEAN PLT VOLUME 8.2 fl (7.5-11.1); MONO % 7.7 % (3.8-10.2); NEUT % 51.6 % (42.8-82.8); PLATELET COUNT 256 K/MM3 (134-434); RBC 4.29 M/mm3 (3.60-5.2); RDW 13.1 % (11.6-15.6); WHITE BLOOD COUNT 5.6 K/mm3 (4.0-10.0)
[2019-10-18 07:16] LABS: CHOLESTEROL 187 mg/dL (50-200); HDL CHOLESTEROL 64 mg/dL (40-60); LDL CHOLESTEROL (ONLY SJRH) 103 mg/dL (5-100); TRIGLYCERIDES 78 mg/dL (0-150)
[2019-10-18 07:21] LABS: ALBUMIN 3.7 g/dl (3.4-5.0); BILIRUBIN,TOTAL 0.5 mg/dL (0.2-1); BLOOD UREA NITROGEN 16.2 mg/dL (7-18); CALCIUM 8.9 mg/dL (8.5-10.1); CREATININE 0.7 mg/dL (0.55-1.3); MAGNESIUM 2.1 mg/dL (1.8-2.4); PHOSPHOROUS 3.6 mg/dL (2.5-4.9); POTASSIUM 4.2 mmol/L (3.5-5.1); TOT PROT 6.8 g/dl (6.4-8.2)
[2019-10-18] MEDS: ENOXAPARIN NA (PORCINE) 40 MG/0.4 ML DISP.SYRIN SQ SCH (09:41)
[2019-10-18] MEDS: SERTRALINE HCL 25 MG TABLET (FP) PO SCH (09:41)
--- NOTE | 2019-10-18 12:28 | PN ---
Progress Note, Physician Chief Complaint: Patient improved no complaint of vertigo nausea vomiting or any focal weakness History of Present Illness: 59-year-old female history of chronic vertigo and dizziness with anxiety disorders presents with an episode of severe vertigo with unsteadiness admitted for further work-up overnight symptoms improved on meclizine. - Current Medication List Current Medications: Active Medications Enoxaparin Sodium (Lovenox -) 40 mg SQ DAILY [facility] Last Admin: 10/18/19 09:41 Dose: 40 mg Documented by: Meclizine HCl (Antivert -) 25 mg PO TID PRN PRN Reason: VERTIGO Sertraline HCl (Zoloft -) 25 mg PO DAILY [facility] Last Admin: 10/18/19 09:41 Dose: 25 mg Documented by: - Objective Vital Signs: Vital Signs Temperature 98.1 F 10/18/19 10:00 Pulse Rate 60 10/18/19 10:00 Respiratory Rate 15 10/18/19 10:00 Blood Pressure 134/52 L 10/18/19 10:00 O2 Sat by Pulse Oximetry (%) 98 10/18/19 07:46 General: Elderly woman, comfortable, not in distress HEENT mucous membranes moist, no anemia, no jaundice, PERRLA, no nystagmus Neck: No JVD, supple, no bruit, thyroid palpably normal, normal carotid pulsations. Chest: Nontender, clear to auscultation bilaterally CVS: S1-S2 regular/irregular no murmur/gallop/rub Abdomen: Nondistended, soft, bowel sounds present. Extremities: No edema., No Calf tenderness, pulses present MEDICAL HISTORIAN: AO X3 , no gross motor sensory deficit Labs: CBC, BMP 10/18/19 06:10 10/18/19 06:10 LDL cholesterol 107 - ....Imaging Chest X-ray: Report Reviewed (Normal) Cat Scan: Report Reviewed (Head: No acute changes) EKG: Report Reviewed (No acute ST-T changes) Problem List - Problems (1) Vertigo Assessment/Plan: Present with intractable vertigo, improved after meclizine admitted to rule out TIA we will follow-up neurology work-up ABCD 2 score is low further neuro work- up inpatient/outpatient as per neuro recommendations, continue neurochecks Problems reviewed: Yes Code(s): R42 - DIZZINESS AND GIDDINESS (2) Anxiety disorder Assessment/Plan: Continue sertraline. Problems reviewed: Yes Code(s): F41.9 - ANXIETY DISORDER, UNSPECIFIED
[2019-10-18 15:22] LABS: EPI CELLS 9 /uL (0-25.1); HYALINE CASTS 1 /uL (0-3.1); URINE APPEARANCE CLEAR; URINE BACTERIA 3139 /uL (0-1359); URINE BILIRUBIN NEGATIVE (NEGATIVE); URINE COLOR YELLOW; URINE GLUCOSE (UA) NEGATIVE (NEGATIVE); URINE KETONE NEGATIVE (NEGATIVE); URINE LEUK ESTERASE NEGATIVE (NEGATIVE); URINE NITRITE POSITIVE (NEGATIVE); URINE PROTEIN NEGATIVE (NEGATIVE); URINE RBC 1 /uL (0-23.9); URINE WBC 12 /uL (0-25.8)
[2019-10-18] MEDS ORDERED: ACETAMINOPHEN 325 MG TABLET (FP) PO PRN (18:55)
--- NOTE | 2019-10-19 09:13 | DS ---
Physical Examination Vital Signs: Vital Signs Temperature 97.8 F 10/19/19 06:24 Pulse Rate 67 10/19/19 06:24 Respiratory Rate 13 10/19/19 06:24 Blood Pressure 134/67 10/19/19 06:24 O2 Sat by Pulse Oximetry (%) 99 10/19/19 08:09 General: Elderly female, comfortable, not in distress HEENT mucous membranes moist, no anemia, no jaundice, PERRLA, no nystagmus Neck: No JVD, supple, no bruit, thyroid palpably normal, normal carotid pulsations. Chest: Nontender, clear to auscultation bilaterally/bilateral wheezing/bilateral basal rales. CVS: S1-S2 regular/irregular no murmur/gallop/rub Abdomen: Nondistended, soft, bowel sounds present. 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 , no gross motor sensory deficit Labs: CBC, BMP 10/18/19 06:10 10/18/19 06:10 Chest x-ray: CT head: No acute changes EKG: Normal sinus rhythm no acute ST-T changes or any arrhythmia court recording monitor: 24 hours no arrhythmia Discharge Summary Problems reviewed: Yes Reason For Visit: VERTIGO Current Active Problems Anxiety disorder (Acute) Vertigo (Acute) Plan of Treatment: Follow-up with your neurology and primary care and take meclizine as needed, please consult nearby ED for complaint of worsening dizziness vertigo change in mental status or any focal weakness or neurological sign like headache, dys arthria or diplopia. Condition: Improved - Instructions Diet, Activity, Other Instructions: Your visit You were admitted to the hospital because of dizziness. CAT scan of your head and your blood work are unremarkable. You were evaluated by the neurologist as well and advised to continue taking Meclizine as needed and to follow up at the clinic. Medications Please take the following medications as prescribed: 1. Meclizine 25mg every 8 hours as needed for dizziness. Please continue your other home medications Have a low-salt, low-cholesterol diet. Follow up Please follow up with your primary care doctor within 1-2 weeks. Please follow up with the neurologist (Dr. Reyes) within 1-2 weeks. Additional info Please call 911 or go to the ED if with any worsening fevers, chills, headache ,dizziness, chest pain, shortness of breath, belly pain or any new concerns noted. Referrals: Fredi Reyes MD [Staff Physician] - 2 Weeks Ekta Stallworth MD [Primary Care Provider] - Disposition: HOME - Home Medications Comprehensive Discharge Medication List: Ambulatory Orders Sertraline HCl [Zoloft] 25 mg PO DAILY 10/17/19 Meclizine HCl [Antivert -] 25 mg PO TID PRN #30 tablet 10/19/19
--- NOTE | 2019-10-19 09:35 | CON.NEURO ---
Consult - Alcohol/Substance Use Hx Alcohol Use: No - Smoking History Smoking history: Never smoked Have you smoked in the past 12 months: No Home Medications - Allergies Allergies/Adverse Reactions: Allergies Allergy/AdvReac Type Severity Reaction Status Date / Time Penicillins Allergy Verified 10/17/19 09:59 - Home Medications Home Medications: Ambulatory Orders Sertraline HCl [Zoloft] 25 mg PO DAILY 10/17/19 Meclizine HCl [Antivert -] 25 mg PO TID PRN #30 tablet 10/19/19 Physical Exam-Neuro Vital Signs: Vital Signs Temperature 97.8 F 10/19/19 06:24 Pulse Rate 67 10/19/19 06:24 Respiratory Rate 13 10/19/19 06:24 Blood Pressure 134/67 10/19/19 06:24 O2 Sat by Pulse Oximetry (%) 99 10/19/19 08:09 Labs: CBC, BMP 10/18/19 06:10 10/18/19 06:10 Assessment/Plan cc Episode of vertigo sensation started on october 16 HPI 59 year old emale history of anxiety, came to hospital for persistent dizziness. 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 She describes it as spinning sensation. Patient had ct head and it was unremarkable. Patient was seen on october 17 at [facility] and she was feeling much better. she was being given meclizine . Patient feels she improved 90 percent She denies any headhace, dysphagia , dysarthria, diplopia, no motor or sensoy weakness. PMH as above PAST SURGICAL HISTORY: x2 cholecystectomy Social History: Smoking:denies Alcohol:denies Drugs: denies Allergies Penicillins Allergy (Verified 10/17/19 09:59) HOME MEDICATIONS: Home Medications Medication Instructions Recorded Sertraline HCl [Zoloft] 25 mg PO DAILY 10/17/19 ROS,FH,SH reviewed in chart NEUROLOGICAL EXAMINATION Alert oriented x 3 vss, neck is supple eomi, no nsytagmus was seen, pupil reactive no face asymmetry moving all ext ct head unremarabe Assessment/Plan BPPV, markedly improved adn no other focal neuro symptoms, and signs, unlikley to be stroke PLan no need for mri or stroke work up meclizine prn follow up outpatient. Thanking you so much Fredi Reyes MD
[2019-10-19] MEDS: ENOXAPARIN NA (PORCINE) 40 MG/0.4 ML DISP.SYRIN SQ SCH (10:02)
[2019-10-19] MEDS: SERTRALINE HCL 25 MG TABLET (FP) PO SCH (10:02)
--- NOTE | 2019-10-19 15:29 | PN ---
Progress Note, Physician Chief Complaint: Patient refused meclizine complaint of vertigo when getting up from bed unable to walk History of Present Illness: 59-year-old female history of chronic vertigo and dizziness with anxiety disorders presents with an episode of severe vertigo with unsteadiness admitted for further work-up , initially improved with the meclizine, evaluated by neurology cleared to discharge patient developed recurrence of symptoms unable to get up and walk - Current Medication List Current Medications: Active Medications Acetaminophen (Tylenol -) 650 mg PO Q6H PRN PRN Reason: HEADACHE Enoxaparin Sodium (Lovenox -) 40 mg SQ DAILY [facility] Last Admin: 10/19/19 10:02 Dose: 40 mg Documented by: Meclizine HCl (Antivert -) 25 mg PO TID PRN PRN Reason: VERTIGO Sertraline HCl (Zoloft -) 25 mg PO DAILY [facility] Last Admin: 10/19/19 10:02 Dose: 25 mg Documented by: - Objective Vital Signs: Vital Signs Temperature 97.7 F 10/19/19 10:00 Pulse Rate 70 10/19/19 10:00 Respiratory Rate 18 10/19/19 10:00 Blood Pressure 153/68 10/19/19 10:00 O2 Sat by Pulse Oximetry (%) 99 10/19/19 08:09 General: Elderly woman, comfortable, not in distress HEENT mucous membranes moist, no anemia, no jaundice, PERRLA, no nystagmus Neck: No JVD, supple, no bruit, thyroid palpably normal, normal carotid pulsations. Chest: Nontender, clear to auscultation bilaterally CVS: S1-S2 regular/irregular no murmur/gallop/rub Abdomen: Nondistended, soft, bowel sounds present. 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 Code(s): F41.9 - ANXIETY DISORDER, UNSPECIFIED
[2019-10-19] MEDS: MECLIZINE HCL 25 MG TABLET (FP) PO SCH (21:01)
[2019-10-20] MEDS: MECLIZINE HCL 25 MG TABLET (FP) PO SCH ×2 (05:45→13:24)
[2019-10-20] MEDS: SERTRALINE HCL 25 MG TABLET (FP) PO SCH (09:04)
[2019-10-20] MEDS: ENOXAPARIN NA (PORCINE) 40 MG/0.4 ML DISP.SYRIN SQ SCH (09:04)
--- NOTE | 2019-10-20 10:19 | PN ---
Progress Note (short form) - Note Progress Note: c Episode of vertigo sensation started on october 16 59 year old emale history of anxiety, came to hospital for persistent dizziness. It started when she were going to bathroom gun number of october 16. She describes it as spinning sensation. Patient had ct head and it was unremarkable. Patient was seen on october 17 at [facility] and she was feeling much better. she was being given meclizine . Patient feels she improved 90 percent She denies any headhace, dysphagia , dysarthria, diplopia, no motor or sensoy weakness. Patient could not be discharged yesterday and she is feeling slightly worse . she just woke up NEUROLOGICAL EXAMINATION Alert oriented x 3 vss, neck is supple eomi, no nsytagmus was seen, pupil reactive no face asymmetry moving all ext neuro exam remain unchanged on october 19 ct head unremarkable Assessment/Plan BPPV, markedly improved and o other focal neuro symptoms, and signs, unlikley to be stroke PLan no need for mri or stroke work up meclizine prn and can be discharged and follow up outpatine t follow up outpatient. Thanking you so much Fredi Reyes MD
[2019-10-20 12:02] VITALS: BP 123/73; PULSE 72; TEMP 98
--- NOTE | 2019-10-20 12:15 | DS ---
Physical Exam: SUBJECTIVE: Patient seen and examined at bedside this morning. No acute events overnight. OBJECTIVE: Vital Signs Temperature 98 F 10/20/19 12:00 Pulse Rate 72 10/20/19 12:00 Respiratory Rate 16 10/20/19 12:00 Blood Pressure 123/73 10/20/19 12:00 O2 Sat by Pulse Oximetry (%) 99 10/20/19 08:33 PHYSICAL EXAM GENERAL: Awake, alert, and fully oriented, in no acute distress. HEAD: Normal with no signs of trauma. EYES:PERRLA, EOMI, sclera anicteric, conjunctiva clear. EARS, NOSE, THROAT: Moist mucous membranes. NECK: Normal range of motion, supple . LUNGS: Breath sounds equal, clear to auscultation bilaterally. HEART: Regular rate and rhythm, normal S1 and S2 ABDOMEN: Soft, nontender, not distended, normoactive bowel sounds MUSCULOSKELETAL: Normal range of motion at all joints. LOWER EXTREMITIES: 2+ pulses, warm, well-perfused. No peripheral edema. NEUROLOGICAL: Cranial nerves II-XII intact. Normal speech. PSYCHIATRIC: Cooperative. Good eye contact. Appropriate mood and affect. SKIN: Warm, dry, normal turgor LABS Laboratory Results - last 24 hr 10/17/19 16:43 COVID-19 ([facility]) Not detected HOSPITAL COURSE: Date of Admission:10/17/19 Date of Discharge: 10/20/19 Patient is a 59 year old female with past medical history of anxiety, presented to the ED due to persistent dizziness since this morning. #Dizziness, likely BPPV -Head CT no acute pathology -Neurology consulted. Recommended follow up as outpatient -No need for MRI or stroke work up -EKG sinus edilberto, HR 59, QTc 419, no ST changes -orthostatics negative -tele monitoring - sinus, no events -continue meclizine prn for dizziness Minutes to complete discharge: 37 Discharge Summary Problems reviewed: Yes Reason For Visit: VERTIGO Current Active Problems Anxiety disorder (Acute) Vertigo (Acute) Plan of Treatment: Follow-up with your neurology and primary care and take meclizine as needed, please consult nearby ED for complaint of worsening dizziness vertigo change in mental status or any focal weakness or neurological sign like headache, dysarthria or diplopia. Condition: Improved - Instructions Diet, Activity, Other Instructions: Your visit You were admitted to the hospital because of dizziness. CAT scan of your head and your blood work are unremarkable. You were evaluated by the neurologist as well and advised to continue taking Meclizine as needed and to follow up at the clinic. Medications Please take the following medications as prescribed: 1. Meclizine 25mg every 8 hours as needed for dizziness. Please continue your other home medications Have a low-salt, low-cholesterol diet. Follow up Please follow up with your primary care doctor within 1-2 weeks. Please follow up with the neurologist (Dr. Reyes) within 1-2 weeks. Additional info Please call 911 or go to the ED if with any worsening fevers, chills, headache ,dizziness, chest pain, shortness of breath, belly pain or any new concerns noted. Referrals: Fredi Reyes MD [Staff Physician] - 2 Weeks Ekta Stallworth MD [Primary Care Provider] - Disposition: HOME - Home Medications Comprehensive Discharge Medication List: Ambulatory Orders Meclizine HCl [Antivert -] 25 mg PO TID PRN #30 tablet 10/19/19 Sertraline HCl [Zoloft -] 25 mg PO DAILY #15 tablet 10/20/19 This patient is new to me today: No Emergency Visit: Yes ED Registration Date: 10/17/19 Care time: The patient presented to the Emergency Department on the above date and was hospitalized for further evaluation of their emergent condition. Critical Care patient: No - Discharge Referral Referred to [facility] No ATTENDING PHYSICIAN STATEMENT I saw and evaluated the patient. I reviewed the resident's note and discussed the case with the resident. I agree with the resident's findings and plan as documented. SUBJECTIVE: OBJECTIVE: ASSESSMENT AND PLAN:
--- NOTE | 2019-10-20 13:04 | PN ---
Progress Note, Physician Chief Complaint: Patient will improve on meclizine able to ambulate History of Present Illness: 59-year-old female history of chronic vertigo and dizziness with anxiety disorders presents with an episode of severe vertigo with unsteadiness admitted for further work-up , initially improved with the meclizine, yesterday evaluated by neurology cleared to discharge patient developed recurrence of symptoms unable to get up and walk, rested overnight, no symptoms have been put on meclizine again we will clinically await neurology for discharge home - Current Medication List Current Medications: Active Medications Acetaminophen (Tylenol -) 650 mg PO Q6H PRN PRN Reason: HEADACHE Last Admin: 10/19/19 17:56 Dose: 650 mg Documented by: Enoxaparin Sodium (Lovenox -) 40 mg SQ DAILY [facility] Last Admin: 10/20/19 09:04 Dose: 40 mg Documented by: Meclizine HCl (Antivert -) 25 mg PO TID [facility] Last Admin: 10/20/19 05:45 Dose: 25 mg Documented by: Sertraline HCl (Zoloft -) 25 mg PO DAILY [facility] Last Admin: 10/20/19 09:04 Dose: 25 mg Documented by: - Objective Vital Signs: Vital Signs Temperature 98 F 10/20/19 12:00 Pulse Rate 72 10/20/19 12:00 Respiratory Rate 16 10/20/19 12:00 Blood Pressure 123/73 10/20/19 12:00 O2 Sat by Pulse Oximetry (%) 99 10/20/19 08:33 G eneral: Elderly woman, comfortable, not in distress HEENT mucous membranes moist, no anemia, no jaundice, PERRLA, no nystagmus Neck: No JVD, supple, no bruit, thyroid palpably normal, normal carotid pulsati ons. Chest: Nontender, clear to auscultation bilaterally CVS: S1-S2 regular no murmur/gallop/rub Abdomen: Nondistended, soft, bowel sounds present. Extremities: No edema., No Calf tenderness, pulses present [employer]: AO X3 , no gross motor sensory deficit Labs: CBC, BMP 10/18/19 06:10 10/18/19 06:10 Problem List - Problems (1) Vertigo Assessment/Plan: Present with intractable vertigo, initially improved after meclizine but recurred unable to ambulate, complaint of dizziness and tinnitus no other focal weakness denies any headache diplopia nausea vomiting, cont on meclizine 25 mg every 8 hourly Code(s): R42 - DIZZINESS AND GIDDINESS (2) Anxiety disorder Assessment/Plan: Continue sertraline. Code(s): F41.9 - ANXIETY DISORDER, UNSPECIFIED
== END 2019-10-20 16:16 | disposition home or self-care (01) | DRG 111 ==
LOC: JER 09:57 → OBSVTOIN 15:54 → JERBED 15:54 → INTOOBSV 15:54 → JICU 17:43
PROVIDERS: ADMIT Internal Medicine; ATTEND Internal Medicine
DX: H81.399 Other peripheral vertigo, unspecified ear (principal); F41.9 Anxiety disorder, unspecified; E66.9 Obesity, unspecified; Z68.30 Body mass index [BMI] 30.0-30.9, adult
CPT/HCPCS: 36415; 70450-TC; 71045-TC-FY; 80053; 80061; 81003; 82550; 83721; 83735; 84100; 84443; 84484; 85025; 93005; 93010; 97116-GP; 97161-GP; 99285-25; U0003